=== PATIENT | male | born 1985 | race African-American/Black ===

== ENCOUNTER 2021-03-27 12:55 | Emergency (ER) | payer SELFPAY ==
[2021-03-27] MEDS ORDERED: Ketorolac Tromethamine 15 MG/ML VIAL ONE (13:10)
[2021-03-27 13:35] LABS: Bilirubin Neg (Negative); Blood, Urine Negative (Negative); Clarity Clear (Clear); Glucose, Urine (Dipstick) Normal (Negative); Ketone, Urine Negative (Negative); Leukocyte Negative (Negative); Nitrite Negative (Negative); Protein, Urine (Dipstick) Negative (Neg-Trace); Urobilinogen Normal mg/dL (Less than 2)
[2021-03-27 13:42] LABS: #Basophils 0.1 10x3/uL (0.0-0.2); #Eosinphils 0.1 10x3/uL (0.0-0.5); #Monocytes 0.7 10x3/uL (0.0-1.1); #Neutrophils 2.5 10x3/uL (1.5-8.4); %Basophils 1.3 % (0.0-2.0); %Eosinophils 2.9 % (0.0-6.0); %Lymphocytes 22.9 % (18.0-47.0); %Monocytes 16.4 % (0.0-10.0); %Neutrophils 56.1 % (40.0-75.0); Hemoglobin 14.8 g/dL (13.5-17.5); Mean Corpuscular HGB CONC 34.7 g/dL (32.0-36.0); Mean Corpuscular Hemoglobin 30.5 pg (27.0-33.0); Mean Corpuscular Volume 87.8 fl (81.2-95.1); Mean Platelet Volume 9.9 fl (7.4-10.4); Platelet Count 207 10x3/uL (150-450); Red Blood Cell (RBC) Count 4.85 10x6/uL (4.32-5.72); White Blood Cell (WBC) Count 4.5 10x3/uL (3.5-10.5)
[2021-03-27 13:55] LABS: ALT (SGPT) 13 U/L (8-55); AST (SGOT) 22 U/L (5-34); Albumin 4.2 g/dL (3.5-5.0); Alkaline Phosphatase 71 U/L (40-110); Anion Gap 15 mmol/L (10-20); BUN (Urea Nitrogen) 9 mg/dL (8.9-20.6); Bilirubin, Total 0.8 mg/dL (0.2-1.2); Calc. Creatinine Clearance 0 mL/min (70-130); Calcium 9.1 mg/dL (7.8-10.44); Carbon Dioxide 27 mmol/L (22-29); Chloride 103 mmol/L (98-107); Glucose 85 mg/dL (70-105); Potassium 4.1 mmol/L (3.5-5.1); Protein, Total 7.2 g/dL (6.0-8.3); Sodium 141 mmol/L (136-145)
== END 2021-03-27 14:11 | disposition home or self-care (01) ==
LOC: CSHERS 12:55
DX: M46.1 Sacroiliitis, not elsewhere classified (principal); R10.31 Right lower quadrant pain; R10.32 Left lower quadrant pain; F17.210 Nicotine dependence, cigarettes, uncomplicated
CPT/HCPCS: 80053; 81003; 85025; 96374; J1885

== ENCOUNTER 2021-04-07 14:02 | Emergency (ER) | payer SELFPAY ==
[2021-04-07 15:01] LABS: Bilirubin Neg (Negative); Blood, Urine Negative (Negative); Clarity Clear (Clear); Glucose, Urine (Dipstick) Normal (Negative); Ketone, Urine Negative (Negative); Leukocyte Negative (Negative); Nitrite Negative (Negative); Protein, Urine (Dipstick) Negative (Neg-Trace)
== END 2021-04-07 15:22 | disposition home or self-care (01) ==
LOC: CSHERS 14:02
DX: S29.012A Strain of muscle and tendon of back wall of thorax, initial encounter (principal); R05 Cough; F17.210 Nicotine dependence, cigarettes, uncomplicated
CPT/HCPCS: 81003; 99283

== ENCOUNTER 2021-11-08 12:46 | Emergency (ER) | payer OTHER, SELFPAY ==
[2021-11-08] MEDS ORDERED: Ketorolac Tromethamine 30 MG/ML VIAL ONE (14:00)
== END 2021-11-08 14:35 | disposition home or self-care (01) ==
LOC: CSHERS 12:46
DX: S61.402A Unspecified open wound of left hand, initial encounter (principal); W01.198A Fall on same level from slipping, tripping and stumbling with subsequent striking against other object, initial encounter; G43.909 Migraine, unspecified, not intractable, without status migrainosus; F17.210 Nicotine dependence, cigarettes, uncomplicated
CPT/HCPCS: 96372; 99283; J1885

== ENCOUNTER 2022-08-29 14:45 | Emergency (ER) | payer SELFPAY ==
[2022-08-29] MEDS ORDERED: Prochlorperazine 10 MG/2 ML VIAL ONE (15:19)
[2022-08-29] MEDS ORDERED: diphenhydrAMINE 50 MG/ML VIAL ONE (15:20)
[2022-08-29] MEDS ORDERED: Ketorolac Tromethamine 30 MG/ML VIAL ONE (15:20)
== END 2022-08-29 17:34 | disposition home or self-care (01) ==
LOC: CSHERS 14:45
DX: S92.414A Nondisplaced fracture of proximal phalanx of right great toe, initial encounter for closed fracture (principal); G43.909 Migraine, unspecified, not intractable, without status migrainosus; R29.700 NIHSS score 0; F17.210 Nicotine dependence, cigarettes, uncomplicated; W22.01XA Walked into wall, initial encounter; Y93.02 Activity, running
CPT/HCPCS: 94760; 96374; 96375; J0780; J1200; J1885